=== PATIENT | male | born 1980 | race Caucasian/White ===

== ENCOUNTER 2018-12-16 05:57 | Emergency (ER) | payer OTHER ==
[2018-12-16 06:22] VITALS: BMI 21.5
--- NOTE | 2018-12-16 07:13 | PDOC ---
History of Present Illness - General Chief Complaint: Pain, Acute Stated Complaint: KIDNEY STONES Time Seen by Provider: 12/16/18 07:13 History Source: Patient, Spouse ( present at bedside) Exam Limitations: No Limitations - History of Present Illness Initial Comments: HPI: 38 y/o male presenting to [facility] ER complaining of subsiding right sided flank pain with nausea and vomiting. Pain started around 04:30 this morning initially in the back and migrated forward before decreasing in intensity. Denies hematuria, urinary frequency, urgency, or discharge. Has not trialed any OTC medication for pain. H/o of similar pain six years ago. Was evaluated at [facility] and diagnosed with renal colic. Did not follow up with a urologist. Pt was evaluated again at [facility] ED yesterday for this pain. reports he underwent a CT scan which revealed a right sided stone. Unable to provide any documentation. Denies referral to urologist. PCP: Pt unable to recall name Medical Hx: - Renal colic - Pt denies prescription medication Surgical Hx: - Pt denies past surgical history. Past History - Past Medical History Allergies/Adverse Reactions: Allergies Allergy/AdvReac Type Severity Reaction Status Date / Time No Known Allergies Allergy Verified 12/16/18 06:22 Home Medications: Ambulatory Orders Naproxen 500 mg PO BID PRN #14 tablet 12/16/18 Oxycodone HCl/Acetaminophen [Percocet 5-325 mg Tablet] 1 tab PO Q6H PRN #12 tablet MDD 4 tabs 12/16/18 COPD: No Kidney Stones: Yes Other medical history: Pt denies - Suicide/Smoking/Psychosocial Hx Smoking History: Never smoked Have you smoked in the past 12 months: No Information on smoking cessation initiated: No Hx Alcohol Use: No Drug/Substance Use Hx: No Review of Systems - Review of Systems Able to Perform ROS?: Yes Comments:: In addition to that documented in the HPI above, the additional ROS was obtained : Constitutional: Endorses chills. Denies fevers Head: Denies vision changes ENMT: Denies sore throat CV: Denies chest pain Resp: Denies SOB GI: Endorses vomiting. Denies diarrhea : Per HPI MSK: Denies recent trauma Skin: Denies new rashes Neuro: Denies new numbness or tingling or weakness Endocrine: Denies polyuria Heme: Denies bleeding or bruising *Physical Exam - Vital Signs Last Vital Signs Temp Pulse Resp BP Pulse Ox 98.8 F 72 19 119/66 99 12/16/18 06:00 12/16/18 06:00 12/16/18 06:00 12/16/18 06:00 12/16/18 06:58 - Physical Exam Comments: Constitutional: Well-developed, well-nourished, non-toxic adult male in no acute distress or obvious discomfort. Found supine on hospital bed. Alert and oriented x4. Answered all questions appropriately and completely. Speech was non -labored, non-pressured. Observed walking through the department without assistance or obvious discomfort. Head: Normocephalic. No obvious external signs of trauma. Eyes: Sclerae white. Ears: Hearing grossly intact. Nose: No nasal discharge. Neck: Supple, trachea is midline. Cardiovascular / Chest: Regular rate and regular rhythm. No murmur, rubs, clicks, or gallops. Peripheral pulses: radial pulses full. Respiratory: Breathing unlabored. Equal chest rise and fall. Clear to auscultation bilaterally. No stridor, no wheezing, no rhonchi. Gastrointestinal: abdomen is soft, non-tender, non-distended. No hepatosplenemegaly. No pulsatile masses. No overlying skin lesions or obvious signs of trauma. Neuro: Alert and oriented. Moving all four extremities spontaneously. Gait normal. Skin: Warm, dry, and intact. : No R or L CVA tenderness. Psych: Affect: appropriate. Mood: normal. Moderate Sedation - Procedure Monitoring Vital Signs: Procedure Monitoring Vital Signs Temperature 98.8 F 12/16/18 06:00 Pulse Rate 72 12/16/18 06:00 Respiratory Rate 19 12/16/18 06:00 Blood Pressure 119/66 12/16/18 06:00 O2 Sat by Pulse Oximetry (%) 99 12/16/18 06:58 ED Treatment Course - LABORATORY CBC & Chemistry Diagram: 12/16/18 07:26 12/16/18 07:26 *DC/Admit/Observation/Transfer Diagnosis at time of Disposition: Right nephrolithiasis - Discharge Dispostion Disposition: HOME Condition at time of disposition: Good Decision to Admit order: No - Prescriptions Prescriptions: Naproxen 500 mg PO BID PRN #14 tablet PRN Reason: Pain Oxycodone HCl/Acetaminophen [Percocet 5-325 mg Tablet] 1 tab PO Q6H PRN #12 tablet MDD 4 tabs PRN Reason: Pain - Referrals Referrals: Homa Bailey MD [Primary Care Provider] - Willie Delgado MD [Staff Physician] - - Patient Instructions Printed Discharge Instructions: DI for Kidney Stones Additional Instructions: You were seen today for right sided flank pain. This is likely related to the kidney stone found on the CT scan at [facility] ED yesterday. The pain you felt was likely the kidney stone passing. You may continue to have a small amount of dull pain over the next few days. I have sent a prescription for Naproxen to your pharmacy. Take as directed on the package insert. Do not exceed the recommended dosage. Do not take with other NSAID medications such as Ibuprofen, Advil, or Motrin. Follow up with your primary care doctor within the next 3-4 days. You will need to call to make an appointment. The number is included in this packet. A copy of todays results are attached to this packet. Take it to the appointment so your doctor can review them. You can also follow up with urologist. I have placed a referral for you to see Dr. Delgado. You will need to call to make an appointment. The number is included in this packet. Go to the nearest emergency department if your condition worsens or you feel like you need additional emergency evaluation. Print Language: VIETNAMESE - Post Discharge Activity Forms/Work/School Notes: Back to Work
[2018-12-16] MEDS ORDERED: IBUPROFEN 600 MG TABLET (FP) PO ONE ×2 (07:37→07:50)
[2018-12-16 07:42] LABS: BASO % 0.6 % (0-2.0); EOS % 0.7 % (0-4.5); HEMATOCRIT 41.3 % (35.4-49); HEMOGLOBIN 14.3 GM/dL (11.7-16.9); LYMPH % 12.2 % (8-40); MCH 31.9 pg (25.7-33.7); MCHC 34.6 g/dl (32.0-35.9); MEAN CELL VOLUME 92.3 fl (80-96); MEAN PLT VOLUME 10.5 fl (7.5-11.1); NEUT % 78.5 % (42.8-82.8); PLATELET COUNT 226 K/MM3 (134-434); RBC 4.47 M/mm3 (4.00-5.60); RDW 13.4 % (11.9-15.9); WHITE BLOOD COUNT 7.8 K/mm3 (4.0-10.0)
[2018-12-16 08:21] LABS: ALBUMIN 3.6 g/dl (3.4-5.0); ALK PHOS 85 U/L (45-117); ANION GAP 5 MMOL/L (8-16); BLOOD UREA NITROGEN 10 mg/dL (7-18); CALCIUM 8.6 mg/dL (8.5-10.1); CHLORIDE 112 mmol/L (98-107); CO2 26 mmol/L (21-32); CREATININE 0.8 mg/dL (0.55-1.3); GLUCOSE,RANDOM 105 mg/dL (74-106); POTASSIUM 3.7 mmol/L (3.5-5.1); SGOT/AST 18 U/L (15-37); SGPT/ALT 27 U/L (13-61); SODIUM 143 mmol/L (136-145); TOT PROT 6.1 g/dl (6.4-8.2)
[2018-12-16 08:23] LABS: URINE APPEARANCE CLEAR; URINE BILIRUBIN NEGATIVE (<2.0 mg/dL); URINE COLOR YELLOW; URINE GLUCOSE (UA) NEGATIVE (NEGATIVE); URINE KETONE NEGATIVE (NEGATIVE); URINE LEUK ESTERASE NEGATIVE (NEGATIVE); URINE NITRITE NEGATIVE (NEGATIVE); URINE PROTEIN NEGATIVE (NEGATIVE); URINE UROBILINOGEN NEGATIVE mg/dL (0.2-1.0)
--- NOTE | 2018-12-16 08:38 | PDOC ---
Attending Attestation - Resident Resident Name: Rg King - ED Attending Attestation I have performed the following: I have examined & evaluated the patient, The case was reviewed & discussed with the resident, I agree w/resident's findings & plan, Exceptions are as noted - HPI HPI: 12/16/18 08:35 38 M with no PMH presents to ED with R flank pain. Pt states pain started yesterday. He initially went to [facility], where he had a CT scan showing a 2mm stone at his R UVJ. Pt was discharged home after his pain subsided. However , at 4am today, pt states the pain returned and was severe, localized to his R flank. Pt vomited twice. In ED, pt states the pain has subsided again. He denies fevers but endorses chills. Denies N/V. Denies abdominal pain. - Physicial Exam PE: 12/16/18 08:37 "GENERAL: Awake, alert, and fully oriented, in no acute distress. HEAD: No signs of trauma EYES: PERRLA, EOMI, sclera anicteric, conjunctiva clear ENT: Auricles normal inspection, hearing grossly normal, nares patent, oropharynx clear without exudates. Moist mucosa NECK: Nontender, no stepoffs, Normal ROM, supple, no lymphadenopathy, JVD, or masses LUNGS: Breath sounds equal, clear to auscultation bilaterally. No wheezes, and no crackles HEART: Regular rate and rhythm, normal S1 and S2, no murmurs, rubs or gallops ABDOMEN: Soft, nontender, normoactive bowel sounds. No guarding, no rebound. No masses BACK: + R CVAT EXTREMITIES: Normal range of motion, no edema. No clubbing or cyanosis. No cords, erythema, or tenderness NEUROLOGICAL: Cranial nerves II through XII intact. 5/5 strength and sensation in all extremities, Normal speech, normal gait, normal cerebellar function SKIN: Warm, Dry, normal turgor, no rashes or lesions noted. - Medical Decision Making 12/16/18 08:37 38 M with kidney stone diagnosed yesterday presenting to ED with colicky R flank pain. Likely 2/2 passing kidney stone. Pt is comfortable appearing in ED with minimal pain. Will r/o infection and JOSE. - Labs, UA - F/u urology 12/16/18 11:05 Labs unremarkable Pain now controlled Pt is well appearing, with normal vitals. Clinically stable for DC at this time. I discussed the physical exam findings, ancillary test results and final diagnoses with the patient. I answered all of the patient's questions. The patient was satisfied with the care received and felt comfortable with the discharge plan and treatment plan. The patient agrees to follow up with the primary care physician within 24-72 hours.
[2018-12-16 08:51] LABS: URINE BACTERIA RARE /hpf (NONE SEEN); URINE MUCUS RARE
[2018-12-16] MEDS ORDERED: ONDANSETRON 4 MG/2 ML VIAL IVPUSH ONE (09:12)
[2018-12-16] MEDS ORDERED: morphine CARPU-JECT 4 MG/1 ML DISP.SYRIN IVPUSH ONE (09:12)
[2018-12-16] MEDS ORDERED: ONDANSETRON 4 MG/2 ML VIAL ONE (09:22)
[2018-12-16] MEDS ORDERED: morphine SULFATE 4 MG/ML VIAL IVPUSH ONE (09:56)
[2018-12-16] MEDS ORDERED: morphine SULFATE 4 MG/ML VIAL ONE (09:56)
[2018-12-16 11:07] VITALS: BP 126/71; PULSE 62; TEMP 98.6
== END 2018-12-16 11:07 | disposition home or self-care (01) ==
LOC: JER 05:57
PROC: 3E033NZ Introduction of Analgesics, Hypnotics, Sedatives into Peripheral Vein, Percutaneous Approach (ICD-10-PCS; principal; 2018-12-16)
PROC: 3E033GC Introduction of Other Therapeutic Substance into Peripheral Vein, Percutaneous Approach (ICD-10-PCS; 2018-12-16)
DX: N20.0 Calculus of kidney (principal); Z87.442 Personal history of urinary calculi
CPT/HCPCS: 36415; 80053; 81003; 81015; 85025; 87086; 99284-25

== ENCOUNTER 2019-07-21 21:32 | Emergency (ER) | payer OTHER ==
--- NOTE | 2019-07-21 21:50 | PDOC ---
Rapid Medical Evaluation Time Seen by Provider: 07/21/19 21:37 Medical Evaluation: Allergies Allergy/AdvReac Type Severity Reaction Status Date / Time No Known Allergies Allergy Verified 12/16/18 06:22 07/21/19 21:48 CC: lower back pain with FB sensation to throat PE: No stridor, drooling. OP-WNL. Orders: Toradol Patient will proceed to the ER for further evaluation. Discharge Disposition - Diagnosis Back pain - Referrals - Patient Instructions - Post Discharge Activity
[2019-07-21 21:53] VITALS: BP 118/68; PULSE 79; TEMP 98.2; BMI 20.7
--- NOTE | 2019-07-21 22:02 | PDOC ---
History of Present Illness - General Chief Complaint: Back Pain Stated Complaint: BACK PAIN Time Seen by Provider: 07/21/19 21:37 - History of Present Illness Initial Comments: 07/21/19 22:01 39-year-old male without comorbidities recently at finished a course of erythromycin for pneumonia presents for evaluation of chest tightness when he breathes deeply and lower back pain with posterior lateral leg radicular symptoms. No loss of bowel or bladder function systemic symptoms or saddle paresthesias Past History - Past Medical History Allergies/Adverse Reactions: Allergies Allergy/AdvReac Type Severity Reaction Status Date / Time No Known Allergies Allergy Verified 07/21/19 21:53 Home Medications: Ambulatory Orders Naproxen 500 mg PO BID PRN #14 tablet 12/16/18 Oxycodone HCl/Acetaminophen [Percocet 5-325 mg Tablet] 1 tab PO Q6H PRN #12 tablet MDD 4 tabs 12/16/18 Cyclobenzaprine HCl [Flexeril 10 mg] 10 mg PO HS PRN #10 tablet 07/21/19 Methylprednisolone [Medrol Dose Herman] 4 mg PO ASDIR #21 tablet 07/21/19 COPD: No Kidney Stones: Yes - Psycho Social/Smoking Cessation Hx Smoking History: Current every day smoker Have you smoked in the past 12 months: Yes Number of Cigarettes Smoked Daily: 20 Information on smoking cessation initiated: No Hx Alcohol Use: No Drug/Substance Use Hx: No Review of Systems - Review of Systems Respiratory: Yes: See HPI Musculoskeletal: Yes: Back Pain *Physical Exam - Vital Signs Last Vital Signs Temp Pulse Resp BP Pulse Ox 98.2 F 79 17 118/68 100 07/21/19 21:50 07/21/19 21:50 07/21/19 21:50 07/21/19 21:50 07/21/19 21:50 - Physical Exam Comments: 07/21/19 22:01 GENERAL: The patient is awake, alert, and fully oriented, in no acute distress. HEAD: Normal with no signs of trauma. EYES: sclera anicteric, conjunctiva clear. ENT: Ears normal NECK: Normal range of motion LUNGS: Breath sounds equal, clear to auscultation bilaterally. No wheezes, and no crackles. HEART: S1 and S2 without murmur, rub or gallop. ABDOMEN: Soft, nontender, normoactive bowel sounds. No guarding, no rebound. No masses. EXTREMITIES: Normal range of motion, no edema. No clubbing or cyanosis. No cords, erythema, or tenderness. NEUROLOGICAL: Cranial nerves II through XII grossly intact. Normal speech, normal gait. PSYCH: Normal mood, normal affect. SKIN: Warm, Dry, normal turgor, no rashes or lesions noted. Lumbar spine skin color temperature and normal range of motion is slightly limited no midline tenderness. Mild right and left paralumbar musculatures spasm and tenderness. 5 out of 5 strength bilateral lower extremities without gross sensorimotor deficits neurovascular intact. ED Treatment Course - RADIOLOGY Radiology Studies Ordered: Category Date Time Status CHEST PA & LAT [RAD] Stat Radiology 07/21/19 22:00 Ordered Medical Decision Making - Medical Decision Making 07/21/19 22:25 Streak atelectasis on radiograph PERC score 0. Will treat lower back pain and cough with Medrol Dosepak Flexeril and pulmonology follow-up as well as orthopedic surgery follow-up discussed with ER attending. Discharge - Discharge Information Problems reviewed: Yes Clinical Impression/Diagnosis: Back pain, Cough Condition: Stable Disposition: HOME - Admission No - Follow up/Referral Referrals: Harpal Terry DO [Staff Physician] - Chucho Walker MD, MD [Staff Physician] - - Patient Discharge Instructions Additional Instructions: Please take the Medrol Dosepak as directed. The Flexeril is 1 tablet before bedtime and will make you sleepy. Return to the emergency room for worsening symptoms and without fail follow-up with pulmonology in 1 to 2 days for further evaluation and treatment options as well as orthopedic surgery for your lower back pain. - Post Discharge Activity
== END 2019-07-21 22:33 | disposition home or self-care (01) ==
LOC: JERFT 21:32
DX: M54.5 Low back pain (principal); R05 Cough; Z87.01 Personal history of pneumonia (recurrent); F17.210 Nicotine dependence, cigarettes, uncomplicated
CPT/HCPCS: 71046-TC-FY; 99281-25

== ENCOUNTER 2019-07-26 22:18 | Emergency (ER) | payer OTHER ==
[2019-07-26 22:31] VITALS: TEMP 97.3; BMI 20.7
[2019-07-27] MEDS ORDERED: PANTOPRAZOLE 40 MG TABLET (FP) PO ONE (00:32)
[2019-07-27] MEDS ORDERED: PANTOPRAZOLE 40 MG TABLET (FP) ONE (00:35)
[2019-07-27 00:54] LABS: BASO % 0.6 % (0-2.0); EOS % 1.4 % (0-4.5); HEMOGLOBIN 14.8 GM/dL (11.7-16.9); LYMPH % 19.8 % (8-40); MCH 29.9 pg (25.7-33.7); MCHC 32.2 g/dl (32.0-35.9); MEAN CELL VOLUME 92.7 fl (80-96); MEAN PLT VOLUME 8.8 fl (7.5-11.1); MONO % 6.3 % (3.8-10.2); NEUT % 71.9 % (42.8-82.8); PLATELET COUNT 359 K/MM3 (134-434); RBC 4.96 M/mm3 (4.00-5.60); RDW 13.4 % (11.9-15.9); WHITE BLOOD COUNT 9.7 K/mm3 (4.0-10.0)
[2019-07-27 01:21] LABS: BILIRUBIN,TOTAL 0.7 mg/dL (0.2-1); BLOOD UREA NITROGEN 12.3 mg/dL (7-18); CALCIUM 9.1 mg/dL (8.5-10.1); CREATININE 0.9 mg/dL (0.55-1.3); POTASSIUM 4.4 mmol/L (3.5-5.1); TOT PROT 6.4 g/dl (6.4-8.2)
--- NOTE | 2019-07-27 01:55 | PDOC ---
Documentation entered by Radha Kaplan SCRIBE, acting as scribe for Katalina Espinoza MD. Katalina Espinoza MD: This documentation has been prepared by the brodyibeEusebio Lincy, SCRIBE, under my direction and personally reviewed by me in its entirety. I confirm that the documentation accurately reflects all work, treatment, procedures, and medical decision making performed by me. History of Present Illness - General Chief Complaint: Chest Pain Stated Complaint: CHEST PAIN Time Seen by Provider: 07/26/19 23:30 History Source: Patient Exam Limitations: No Limitations - History of Present Illness Initial Comments: 07/27/19 00:45 The patient is a 39 year old male with no reported past medical history who presents to the emergency department with chest discomfort. The patient reports hes been having 2 weeks of shortness of breath, states he wakes up in the middle of the night with difficulty breathing, palpitations like his heart stop beating, then he has an onset of tingling to the hands. The patient every time he swallows, he feels something in his throat. The patient reports having rice and beans for dinner tonight. Denies fever. Past History - Past Medical History Allergies/Adverse Reactions: Allergies Allergy/AdvReac Type Severity Reaction Status Date / Time No Known Allergies Allergy Verified 07/21/19 21:53 Home Medications: Ambulatory Orders NK [No Known Home Medication] 07/27/19 COPD: No Kidney Stones: Yes - Psycho Social/Smoking Cessation Hx Smoking History: Current every day smoker Have you smoked in the past 12 months: Yes Number of Cigarettes Smoked Daily: 5 Information on smoking cessation initiated: Yes Hx Alcohol Use: No Drug/Substance Use Hx: No Review of Systems - Review of Systems Able to Perform ROS?: Yes Comments:: 07/27/19 00:45 GENERAL/CONSTITUTIONAL: No fever or chills. No weakness. HEAD, EYES, EARS, NOSE AND THROAT: No change in vision. No ear pain or discharge. No sore throat. CARDIOVASCULAR: +wakes up with difficulty breathing. shortness of breath. Palpitations. RESPIRATORY: No cough, wheezing, or hemoptysis. GASTROINTESTINAL: No nausea, vomiting, diarrhea or constipation. GENITOURINARY: No dysuria, frequency, or change in urination. MUSCULOSKELETAL: No joint or muscle swelling or pain. No neck or back pain. SKIN: No rash NEUROLOGIC: +tingling to the hands. No headache, vertigo, loss of consciousness , or change in strength/sensation. ENDOCRINE: No increased thirst. No abnormal weight change. HEMATOLOGIC/LYMPHATIC: No anemia, easy bleeding, or history of blood clots. ALLERGIC/IMMUNOLOGIC: No hives or skin allergy. *Physical Exam - Vital Signs Last Vital Signs Temp Pulse Resp BP Pulse Ox 97.3 F L 85 20 114/78 100 07/26/19 22:26 07/26/19 22:26 07/26/19 22:26 07/26/19 22:26 07/26/19 22:26 - Physical Exam Comments: 07/27/19 00:49 GENERAL: Awake, alert, and fully oriented, in no acute distress HEAD: No signs of trauma EYES: PERRLA, EOMI, sclera anicteric, conjunctiva clear ENT: Auricles normal inspection, hearing grossly normal, nares patent, oropharynx clear without exudates. Moist mucosa NECK: Normal ROM, supple, no lymphadenopathy, JVD, or masses LUNGS: Breath sounds equal, clear to auscultation bilaterally. No wheezes, and no crackles HEART: Regular rate and rhythm, normal S1 and S2, no murmurs, rubs or gallops ABDOMEN: Soft, nontender, normoactive bowel sounds. No guarding, no rebound. No masses EXTREMITIES: Normal range of motion, no edema. No clubbing or cyanosis. No cords, erythema, or tenderness NEUROLOGICAL: Cranial nerves II through XII grossly intact. Normal speech, normal gait SKIN: Warm, Dry, normal turgor, no rashes or lesions noted. ED Treatment Course - LABORATORY CBC & Chemistry Diagram: 07/27/19 00:40 07/27/19 00:40 - ADDITIONAL ORDERS Additional order review: 07/27/19 00:40 RBC 4.96 MCV 92.7 MCHC 32.2 RDW 13.4 MPV 8.8 D Neutrophils % 71.9 Lymphocytes % 19.8 D Monocytes % 6.3 Eosinophils % 1.4 D Basophils % 0.6 - RADIOLOGY Radiology Studies Ordered: Category Date Time Status CHEST PA & LAT [RAD] Stat Radiology 07/26/19 23:30 Taken - Medications Given in the ED: ED Medications Discontinued Medications Generic Name Dose Route Start Last Admin Trade Name Freq PRN Reason Stop Dose Admin Pantoprazole Sodium 40 mg 07/27/19 00:32 07/27/19 00:45 Protonix - PO 07/27/19 00:33 40 mg ONCE ONE Administration Discharge - Discharge Information Problems reviewed: Yes Clinical Impression/Diagnosis: Atypical chest pain, Stress reaction, Panic attack, Right bundle branch block Disposition: HOME - Admission No - Follow up/Referral Referrals: Sravani Underwood MD [Staff Physician] - Vidhya Jeter [Non Staff, Medical] - Kristen Topete [Staff Physician] - Karson Escalante MD [Staff Physician] - - Patient Discharge Instructions Patient Printed Discharge Instructions: DI for Atypical Chest Pain, Tips for Reducing Stress in Your Life, Understanding and Managing the Stress Response Print Language: SYRI[place] - Post Discharge Activity Work/Back to School Note: Back to Work
[2019-07-27 02:04] VITALS: BP 112/76; PULSE 72
--- NOTE | 2019-07-27 15:47 | EKG ---
Test Reason : Blood Pressure : / mmHG Vent. Rate : 070 BPM Atrial Rate : 070 BPM P-R Int : 122 ms QRS Dur : 118 ms QT Int : 404 ms P-R-T Axes : 051 062 063 degrees QTc Int : 436 ms NORMAL SINUS RHYTHM INCOMPLETE RIGHT BUNDLE BRANCH BLOCK BORDERLINE ECG NO PREVIOUS ECGS AVAILABLE Confirmed by ANIBAL VASQUEZ, ANKUR ([id number]) on 07/27/2019 3:46:56 PM Referred By: Confirmed By:ANKUR BARNETT MD
== END 2019-07-27 02:03 | disposition home or self-care (01) ==
LOC: JER 22:18
DX: R07.9 Chest pain, unspecified (principal); F43.9 Reaction to severe stress, unspecified; F41.0 Panic disorder [episodic paroxysmal anxiety]; I45.10 Unspecified right bundle-branch block; Z87.442 Personal history of urinary calculi; F17.210 Nicotine dependence, cigarettes, uncomplicated
CPT/HCPCS: 36415; 71046-TC-FY; 80053; 82550; 84484; 85025; 93005; 93010; 99283-25